=== PATIENT | female | born 1995 | race Caucasian/White ===

== ENCOUNTER 2016-03-28 18:57 | Emergency (ER) | payer MEDICAID, OTHER ==
[~2016-03-28] VITALS: Ht 157.5 cm; Wt 43.1 kg
[2016-03-28 19:24] VITALS: BP 96/60
--- NOTE | 2016-03-28 19:47 | NUR ---
PT TAKEN TO BED 3
--- NOTE | 2016-03-28 19:47 | NUR ---
Dr. Rojo evaluating patient at bedside.
[2016-03-28] MEDS ORDERED: ASPIRIN 81 MG TAB.CHEW PO ONE (19:55)
--- NOTE | 2016-03-28 19:55 | NUR ---
20Y F BIB FRIEND C/O CHEST PAIN X 3 DAYS, DENIES PAIN RADIATES TO ANY EXTREMITIES. NON DIAPHORETIC, NO SOB, NON CLAMMY. PT STATES CHEST FEELS TIGHT MAY BE RELATED TO STRESS
[2016-03-28 21:50] VITALS: BP 112/72
--- NOTE | 2016-03-28 21:50 | NUR ---
Patient discharged with v/s stable. Written and verbal after care instructions given and explained. Patient alert, oriented and verbalized understanding of instructions. Ambulatory with steady gait. All questions addressed prior to discharge. ID band removed. Patient advised to follow up with PMD. Rx of ATIVAN 0.5MG PO given. Patient educated on indication of medication including possible reaction and side effects. Opportunity to ask questions provided and answered.
== END 2016-03-28 21:50 | disposition home or self-care (01) ==
LOC: MED 19:09
DX: F41.9 Anxiety disorder, unspecified (principal); R07.89 Other chest pain
CPT/HCPCS: 36415; 71010; 80053; 81002; 81025; 82553; 83880; 84484; 85025; 85379; 85610; 85730; 93005; 99285; Q0092

== ENCOUNTER 2016-08-08 11:34 | Emergency (ER) | payer OTHER ==
[~2016-08-08] VITALS: Ht 157.5 cm; Wt 43.5 kg
[2016-08-08 12:18] VITALS: BP 84/57
--- NOTE | 2016-08-08 12:30 | NUR ---
PATIENT PRESENTS TO ED WITH C/O RIGHT 2ND THROUGH 5TH FINGER PAIN . PT STATES THE PAIN STARTED 1 WEEK AGO AND HAS PERSISTED DESPITE TAKING OTC TYLENOL. PT DENIES ANY RECENT INJURY OR TRAUMA. PT ABLE TO MOVE ALL DIGITS WITHOUT DIFFICULTY . DENIES N/V/D; SKIN IS PINK/WARM/DRY; AAOX4 WITH EVEN AND STEADY GAIT; LUNGS CLEAR BL; HR EVEN AND REGULAR; PT DENIES ANY FEVER, CP, SOB, OR COUGH AT THIS TIME; PATIENT STATES PAIN OF 10/10 AT THIS TIME; VSS; PATIENT POSITIONED FOR COMFORT; HOB ELEVATED; BEDRAILS UP X2; BED DOWN. ER MD MADE AWARE OF PT STATUS.
--- NOTE | 2016-08-08 12:36 | NUR ---
Maria Ines ROSALES PTAnthony
[2016-08-08] MEDS ORDERED: KETOROLAC 30 MG/ML VIAL IM ONE (12:45)
--- NOTE | 2016-08-08 13:01 | NUR ---
MEDICATION ADMINISTERED ORDERED.
[2016-08-08 13:18] VITALS: BP 84/57
== END 2016-08-08 13:19 | disposition home or self-care (01) ==
LOC: MED 11:34
DX: M79.644 Pain in right finger(s) (principal)
CPT/HCPCS: 96372; 99283; J1885

== ENCOUNTER 2017-03-27 19:08 | Emergency (ER) | payer OTHER ==
[~2017-03-27] VITALS: Ht 160 cm; Wt 43.5 kg
[2017-03-27 19:47] VITALS: BP 133/55
--- NOTE | 2017-03-27 20:05 | NUR ---
TO ER CHAIR A
--- NOTE | 2017-03-27 20:06 | NUR ---
Pt presents to ED with anxiety, cough, nausea without vomitus, pain to left bicept x3 days. Pt denies injury. Alert and oriented x4. VSS. ER MD aware. Continue to monitor.
[2017-03-27 20:21] VITALS: BP 133/55
--- NOTE | 2017-03-27 20:21 | NUR ---
Patient discharged with v/s stable. Pt denies pain, sob, nausea. Written and verbal after care instructions given and explained. Patient verbalized understanding. Ambulatory with steady gait. All questions addressed prior to discharge. Advised to follow up with PMD.
== END 2017-03-27 20:21 | disposition home or self-care (01) ==
LOC: MED 19:08
DX: F41.9 Anxiety disorder, unspecified (principal); R06.4 Hyperventilation
CPT/HCPCS: 99284

== ENCOUNTER 2017-07-10 09:24 | Emergency (ER) | payer OTHER ==
[~2017-07-10] VITALS: Ht 154.9 cm; Wt 44.5 kg
[2017-07-10 09:28] VITALS: BP 98/70
--- NOTE | 2017-07-10 09:30 | NUR ---
gave report to AUDREY Nichole.
--- NOTE | 2017-07-10 09:31 | NUR ---
Pt. ambulated to BED 7.
--- NOTE | 2017-07-10 09:35 | NUR ---
DR. PINTO AT BEDSIDE EVALUATING PT.
--- NOTE | 2017-07-10 09:36 | NUR ---
PATIENT PRESENTS TO ED WITH THE CHIEF C/O OF NECK PAIN . PT STATES NECK PAIN STATES PAIN STARTED SINCE YESTERDAY. PALPABLE LUMP NOTED ON RIGHT SIDE OF NECK, TENDERNESS. . DENIES N/V/D. dENIES FALL, INJURY. SKIN IS PINK/WARM/DRY; AAOX4 WITH EVEN AND STEADY GAIT. HR EVEN AND REGULAR. PT DENIES ANY FEVER, CP, SOB, OR COUGH AT THIS TIME. PATIENT STATES PAIN OF 7/10 AT THIS TIME. VSS WNL. PATIENT POSITIONED FOR COMFORT; HOB ELEVATED; BEDRAILS UP X2; BED DOWN. ER MD MADE AWARE OF PT STATUS.
--- NOTE | 2017-07-10 09:53 | NUR ---
US HIRED HAND AT BEDSIDE FOR US SOFT TISSUE OF HEAD.
[2017-07-10] MEDS ORDERED: IBUPROFEN 800 MG TAB PO ONE (10:00)
[2017-07-10 10:08] LABS: BASOPHILS % (AUTO) 0.6 % (0.0-2.0); EOSINOPHILS % (AUTO) 0.3 % (0.0-4.0); HEMATOCRIT 35.1 % (36-48); HEMOGLOBIN 11.9 g/dL (12.0-16.0); LYMPHOCYTES # (AUTO) 4.1 K/uL (2.5-16.5); LYMPHOCYTES % (AUTO) 54.9 % (20.5-51.1); MEAN CORPUSCULAR HEMOGLOBIN 31 pg (27-31); MEAN CORPUSCULAR HGB CONC 34 g/dL (33-37); MEAN CORPUSCULAR VOLUME 91.2 fL (80-94); MONOCYTES # (AUTO) 0.7 K/uL (0.8-1.0); MONOCYTES % (AUTO) 9.2 % (1.7-9.3); NEUTROPHILS # (AUTO) 2.6 K/uL (1.8-7.7); PLATELET COUNT (AUTO) 209 K/uL (140-450); RED BLOOD CELL COUNT(AUTO) 3.85 MIL/uL (4.20-5.40); RED CELL DISTRIBUTION WIDTH 13.3 % (11.6-13.7); WHITE BLOOD COUNT (AUTO) 7.4 K/uL (4.8-10.8)
[2017-07-10 10:18] LABS: CARBON DIOXIDE 27.8 mmol/L (21-32); CREATININE 0.6 mg/dL (0.6-1.3); POTASSIUM 3.8 mmol/L (3.5-5.1)
--- NOTE | 2017-07-10 10:54 | NUR ---
BOYFRIEND AT BEDSIDE.
[2017-07-10] MEDS ORDERED: NACL 0.9% 1,000 ML IV ONE (11:30)
--- NOTE | 2017-07-10 11:31 | NUR ---
DR. PINTO AT BEDSIDE.
--- NOTE | 2017-07-10 12:37 | NUR ---
PT RESTING IN BED. NO ACUTE DISTRESS NOTED. NO CHANGE IN LOC. WILL CONTINUE TO MONITOR.
[2017-07-10 14:04] VITALS: BP 105/62
--- NOTE | 2017-07-10 14:05 | NUR ---
Patient discharged with v/s stable. Written and verbal after care instructions given and explained. Patient alert, oriented and verbalized understanding of instructions. Ambulatory with steady gait. All questions addressed prior to discharge. ID band removed. Patient advised to follow up with PMD. Rx of PREDNISONE AND AUGMENTIN given. Patient educated on indication of medication including possible reaction and side effects. Opportunity to ask questions provided and answered.
== END 2017-07-10 14:05 | disposition home or self-care (01) ==
LOC: MED 09:24
DX: R59.0 Localized enlarged lymph nodes (principal)
CPT/HCPCS: 36415; 70491; 76536; 80048; 81002; 81025; 85025; 99285; Q0092; Q9967

== ENCOUNTER 2017-07-14 20:39 | Emergency (ER) | payer OTHER ==
[~2017-07-14] VITALS: Ht 157.5 cm; Wt 44.5 kg
[2017-07-14 20:48] VITALS: BP 112/78
--- NOTE | 2017-07-14 21:00 | NUR ---
TO LOBBY A/W BED, AMB, VSS, EKG DONE , ERMD NOTED
--- NOTE | 2017-07-14 21:30 | NUR ---
PT TAKEN TO BED 1
--- NOTE | 2017-07-14 21:30 | NUR ---
21/F CAME IN W C/O 05/17 SUBSTERNAL CHEST PAIN, NONRADIATING, NONPROVOKED SINCE THIS MORNING. PT STATES " I TOOK THIS ANTIBIOTIC AND I STARTED HAVING CHEST PAIN WHEN I WOKE UP". HEART SOUNDS NORMAL. DENIES SOB, N/V/D, FEVER/CHILLS. PT IS NONDIAPHORETIC. DENIES OTHER PMH/RX
--- NOTE | 2017-07-14 22:37 | NUR ---
XRAY AT BEDSIDE
--- NOTE | 2017-07-14 23:04 | NUR ---
DPatient discharged with v/s stable. Written and verbal after care instructions given and explained. Patient verbalized understanding. Ambulatory with steady gait. All questions addressed prior to discharge. Advised to follow up with PMD.
[2017-07-14 23:08] VITALS: BP 128/71
== END 2017-07-14 23:04 | disposition home or self-care (01) ==
LOC: MED 20:39
DX: R06.00 Dyspnea, unspecified (principal); R59.1 Generalized enlarged lymph nodes
CPT/HCPCS: 71045; 93005; 99284

== ENCOUNTER 2018-03-25 15:51 | Emergency (ER) | payer OTHER ==
[~2018-03-25] VITALS: Ht 160 cm; Wt 44.1 kg
[2018-03-25 16:03] VITALS: BP 117/75
--- NOTE | 2018-03-25 16:33 | NUR ---
PT AMBULATES TO XRAY
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
--- NOTE | 2018-03-25 17:39 | NUR ---
Patient discharged with v/s stable. Written and verbal after care instructions given and explained. Patient alert, oriented and verbalized understanding of instructions. Ambulatory with steady gait. All questions addressed prior to discharge. ID band removed. Patient advised to follow up with PMD. Rx of MOTRIN AND KEFLEX given. Patient educated on indication of medication including possible reaction and side effects. Opportunity to ask questions provided and answered.
[2018-03-25 17:40] VITALS: BP 117/75
== END 2018-03-25 17:39 | disposition home or self-care (01) ==
LOC: MED 15:51
DX: S67.191A Crushing injury of left index finger, initial encounter (principal); W23.0XXA Caught, crushed, jammed, or pinched between moving objects, initial encounter; Y93.89 Activity, other specified; Y92.89 Other specified places as the place of occurrence of the external cause; Y99.8 Other external cause status
CPT/HCPCS: 73130; 99283

== ENCOUNTER 2018-04-11 09:48 | Emergency (ER) | payer OTHER ==
[~2018-04-11] VITALS: Ht 160 cm; Wt 45.4 kg
[2018-04-11 09:50] VITALS: BP 127/76
--- NOTE | 2018-04-11 09:50 | NUR ---
PATIENT AMBULATED TO BED 3 AT THIS TIME.
--- NOTE | 2018-04-11 10:04 | NUR ---
Assumed patient care, nursing assessment completed. Seen and evaluated by BONY DAMIAN completed.
--- NOTE | 2018-04-11 10:10 | NUR ---
Hematoma care by MD with no complications.
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
[2018-04-11 10:27] VITALS: BP 96/70
== END 2018-04-11 10:25 | disposition home or self-care (01) ==
LOC: MED 09:48
DX: S60.122A Contusion of left index finger with damage to nail, initial encounter (principal); X58.XXXA Exposure to other specified factors, initial encounter; Y93.89 Activity, other specified; Y92.89 Other specified places as the place of occurrence of the external cause; Y99.8 Other external cause status
CPT/HCPCS: 11740; 99283

== ENCOUNTER 2018-09-27 20:57 | Emergency (ER) | payer OTHER ==
[~2018-09-27] VITALS: Ht 160 cm; Wt 46.3 kg
[2018-09-27 21:04] VITALS: BP 114/69
--- NOTE | 2018-09-27 21:09 | NUR ---
PT AMBULATED TO LOBBY WITH VSS
--- NOTE | 2018-09-27 21:39 | NUR ---
PT AMBULATED TO ER BED 04
--- NOTE | 2018-09-27 21:53 | NUR ---
22 Y/O FEMALE S/P FALL AROUND 5PM. PT WAS CLEANING THE POOL WHEN SHE SLIPPED AND FELL. R LEG CONTINOUS PAIN, 11/16. NO LOC AT TIME OF FALL. PT. STATES,"IT HURTS WHEN I TWIST MY LEG INWARD". VSS. SIDE RAIL X1. ERMD TO SEE PT. LEDY PMH:DENIES
--- NOTE | 2018-09-27 21:53 | NUR ---
PT. AMBULATED TO THE BATHROOM.
--- NOTE | 2018-09-27 22:18 | NUR ---
PT. TAKEN TO X-RAy
[2018-09-27 23:09] VITALS: BP 114/69
--- NOTE | 2018-09-27 23:09 | NUR ---
ANNA WRAP APPLIED TO RT KNEE. CMS INTACT, PULSES PRESENT AND EQUAL PRIOR TO AND POST APPLICATION OF WRAP. PT TOELRATED PROCEDURE WELL.
== END 2018-09-27 23:09 | disposition home or self-care (01) ==
LOC: MED 20:57
DX: S83.91XA Sprain of unspecified site of right knee, initial encounter (principal); X58.XXXA Exposure to other specified factors, initial encounter; Y93.9 Activity, unspecified; Y92.89 Other specified places as the place of occurrence of the external cause; Y99.9 Unspecified external cause status
CPT/HCPCS: 73502; 73562; 73590; 81002; 81025; 99283

== ENCOUNTER 2018-12-06 09:09 | Emergency (ER) | payer OTHER ==
[~2018-12-06] VITALS: Ht 157.5 cm; Wt 44.6 kg
[2018-12-06 09:15] VITALS: BP 94/67
[2018-12-06] MEDS ORDERED: NACL 0.9% 1,000 ML IV ONE (09:30)
[2018-12-06 10:06] LABS: BASOPHILS % (AUTO) 0.3 % (0.0-2.0); EOSINOPHILS % (AUTO) 0.1 % (0.0-4.0); HEMATOCRIT 39.6 % (36-48); HEMOGLOBIN 13.3 g/dL (12.0-16.0); LYMPHOCYTES # (AUTO) 0.3 K/uL (2.5-16.5); LYMPHOCYTES % (AUTO) 4.6 % (20.5-51.1); MEAN CORPUSCULAR HEMOGLOBIN 32 pg (27-31); MEAN CORPUSCULAR HGB CONC 34 g/dL (33-37); MEAN CORPUSCULAR VOLUME 94.3 fL (80-94); MONOCYTES # (AUTO) 0.6 K/uL (0.8-1.0); MONOCYTES % (AUTO) 7.4 % (1.7-9.3); NEUTROPHILS # (AUTO) 6.6 K/uL (1.8-7.7); NEUTROPHILS % (AUTO) 87.6 % (42.2-75.2); PLATELET COUNT (AUTO) 228 K/uL (140-450); WHITE BLOOD COUNT (AUTO) 7.6 K/uL (4.8-10.8)
[2018-12-06 10:07] LABS: APPEARANCE,URINE CLEAR (CLEAR); BILIRUBIN,URINE 2+ (NEGATIVE); BLOOD, URINE 2+ (NEGATIVE); COLOR,URINE YELLOW (YELLOW); LEUKOCYTE ESTERASE ,URINE NEGATIVE (NEGATIVE); NITRITE, URINE NEGATIVE (NEGATIVE); UGLUCOSE NEGATIVE (NEGATIVE)
[2018-12-06] MEDS ORDERED: diphenhydrAMINE 50 MG/ML VIAL IVP ONE (10:10)
[2018-12-06] MEDS ORDERED: DICYCLOMINE HCL LIQUID 20 MG, ALUMINUM HYD/MAG/SIMETHICONE 30 ML, LIDOCAINE VISCOUS 2% ... PO ONE ×3 (10:10)
[2018-12-06] MEDS ORDERED: KETOROLAC 15 MG/ML VIAL IVP ONE (10:10)
[2018-12-06] MEDS ORDERED: METOCLOPRAMIDE 10 MG/2 ML INJ VIAL IVP ONE (10:10)
[2018-12-06 10:20] LABS: ALBUMIN 4.5 g/dL (3.4-5.0); ANION GAP 16.8 (8-16); CARBON DIOXIDE 22.2 mmol/L (21-32); CREATININE 0.7 mg/dL (0.6-1.3); TOTAL BILIRUBIN 0.9 mg/dL (0.0-1.0)
[2018-12-06 10:46] LABS: RBC,URINE 11-20 (MOD) /HPF (0-5)
[2018-12-06 10:47] LABS: WBC,URINE 0-5 /HPF (0-5)
[2018-12-06 12:12] VITALS: BP 94/67
== END 2018-12-06 12:13 | disposition home or self-care (01) ==
LOC: MED 09:09
DX: K29.70 Gastritis, unspecified, without bleeding (principal); R11.2 Nausea with vomiting, unspecified
CPT/HCPCS: 36415; 80053; 81001; 81025; 82150; 83690; 84703; 85025; 96361; 96374; 96375; 99283; J1200; J1885; J2765

== ENCOUNTER 2020-08-24 14:18 | Emergency (ER) | payer OTHER ==
[~2020-08-24] VITALS: Ht 160 cm; Wt 47.6 kg
[2020-08-24 14:30] VITALS: BP 107/63
--- NOTE | 2020-08-24 14:31 | NUR ---
PT AMBULATED TO BED 7
--- NOTE | 2020-08-24 14:37 | NUR ---
KADEN PEREYRA AT BEDSIDE FOR EVALUATION.
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
[2020-08-24] MEDS ORDERED: ACETAMINOPHEN 325 MG TAB PO ONE (14:45)
--- NOTE | 2020-08-24 14:56 | NUR ---
PT TAKEN TO CT SCAN VIA W/C.
--- NOTE | 2020-08-24 15:05 | NUR ---
Patient back to [facility] from [place].
--- NOTE | 2020-08-24 15:20 | NUR ---
Patient states positive relief; pain 4/10 at this time. Denies nausea. All needs met.
[2020-08-24] MEDS ORDERED: ACET-10509 PO (15:31)
[2020-08-24 15:46] VITALS: BP 107/63
== END 2020-08-24 15:46 | disposition home or self-care (01) ==
LOC: MED 14:18
DX: S09.90XA Unspecified injury of head, initial encounter (principal); Z79.899 Other long term (current) drug therapy; V43.52XA Car driver injured in collision with other type car in traffic accident, initial encounter; Y93.89 Activity, other specified; Y92.89 Other specified places as the place of occurrence of the external cause; Y99.8 Other external cause status
CPT/HCPCS: 70450; 81025; 99284

== ENCOUNTER 2021-06-29 09:56 | Emergency (ER) | payer OTHER ==
[~2021-06-29] VITALS: Ht 160 cm; Wt 42.6 kg
[~2021-06-29 09:56] MED LIST: ACET-10509 PO
[2021-06-29 10:02] VITALS: BP 122/76
[2021-06-29] MEDS ORDERED: METR-435 PO (11:29)
[2021-06-29] MEDS ORDERED: ONDA-188 SL (11:29)
[2021-06-29] MEDS ORDERED: ACET-10509 PO (11:29)
[2021-06-29 11:53] VITALS: BP 122/76
--- NOTE | 2021-06-29 11:54 | NUR ---
Patient discharged with v/s stable. Written and verbal after care instructions given and explained. Patient alert, oriented and verbalized understanding of instructions. Ambulatory with family to car. All questions addressed prior to discharge. ID band removed. Patient advised to follow up with PMD. Rx of ondansetron, metronidazole, acetaminophen (sent) given. Patient educated on indication of medication including possible reaction and side effects. Opportunity to ask questions provided and answered. work note given
== END 2021-06-29 11:54 | disposition home or self-care (01) ==
LOC: MED 09:56
DX: N39.0 Urinary tract infection, site not specified (principal); N76.0 Acute vaginitis; B96.89 Other specified bacterial agents as the cause of diseases classified elsewhere; Z79.899 Other long term (current) drug therapy
CPT/HCPCS: 81002; 81025; 99283

== ENCOUNTER 2022-01-07 12:47 | Emergency (ER) | payer OTHER ==
[~2022-01-07] VITALS: Ht 160 cm; Wt 45.8 kg
[~2022-01-07 12:47] MED LIST changes: +METR-435 PO; +ONDA-188 SL
[2022-01-07 12:50] VITALS: BP 113/68
[2022-01-07] MEDS ORDERED: ACETAMINOPHEN 325 MG TAB ONE (14:48)
[2022-01-07] MEDS: ACETAMINOPHEN 325 MG TAB PO ONE (15:01)
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
--- NOTE | 2022-01-07 15:30 | NUR ---
Patient discharged with v/s stable. Written and verbal after care instructions given and explained. Patient verbalized understanding. Ambulatory with steady gait. All questions addressed prior to discharge. Advised to follow up with PMD.
== END 2022-01-07 15:40 | disposition home or self-care (01) ==
LOC: MED 12:47
DX: S50.812A Abrasion of left forearm, initial encounter (principal); S20.312A Abrasion of left front wall of thorax, initial encounter; Z79.899 Other long term (current) drug therapy; V49.9XXA Car occupant (driver) (passenger) injured in unspecified traffic accident, initial encounter; Y93.89 Activity, other specified; Y92.488 Other paved roadways as the place of occurrence of the external cause; Y99.8 Other external cause status
CPT/HCPCS: 71045; 73090; 81025; 90471; 90715; 99284

== ENCOUNTER 2023-05-31 11:21 | Emergency (ER) | payer OTHER ==
[~2023-05-31] VITALS: Ht 160 cm; Wt 44.5 kg
[2023-05-31 11:48] VITALS: BP 94/65; PULSE 99; RESP 18; TEMP 98.7; O2SAT 97
[2023-05-31] MEDS ORDERED: CRUSHER, PILL MC ONE (14:34)
[2023-05-31 14:48] LABS: BASOPHILS # (AUTO) 0.1 K/uL (0.00-0.22); BASOPHILS % (AUTO) 1.1 % (0.0-2.0); EOSINOPHILS # (AUTO) 0.1 K/uL (0-0.4); EOSINOPHILS % (AUTO) 1.1 % (0.0-4.0); HEMATOCRIT 39.6 % (36-48); HEMOGLOBIN 13.8 g/dL (12.0-16.0); LYMPHOCYTES # (AUTO) 1.6 K/uL (2.5-16.5); LYMPHOCYTES % (AUTO) 23.9 % (20.5-51.1); MEAN CORPUSCULAR HEMOGLOBIN 32 pg (27-31); MEAN CORPUSCULAR HGB CONC 35 g/dL (33-37); MEAN CORPUSCULAR VOLUME 92.4 fL (80-94); MONOCYTES # (AUTO) 0.6 K/uL (0.8-1.0); MONOCYTES % (AUTO) 9.2 % (1.7-9.3); NEUTROPHILS # (AUTO) 4.3 K/uL (1.8-7.7); NEUTROPHILS % (AUTO) 64.7 % (42.2-75.2); PLATELET COUNT (AUTO) 327 K/uL (140-450); RED BLOOD CELL COUNT(AUTO) 4.29 MIL/uL (4.20-5.40); RED CELL DISTRIBUTION WIDTH 12.3 % (11.6-13.7); WHITE BLOOD COUNT (AUTO) 6.7 K/uL (4.8-10.8)
[2023-05-31 15:07] LABS: ALBUMIN 4.6 g/dL (3.4-5.0); ANION GAP 13.6 (8-16); CALCIUM 9.7 mg/dL (8.5-10.1); CARBON DIOXIDE 27.5 mmol/L (21-32); CREATININE 0.7 mg/dL (0.6-1.3); POTASSIUM 4.1 mmol/L (3.5-5.1); TOTAL BILIRUBIN 0.7 mg/dL (0.0-1.0)
[2023-05-31 15:08] LABS: APPEARANCE,URINE CLEAR (CLEAR); BILIRUBIN,URINE 1+ (NEGATIVE); BLOOD, URINE 2+ (NEGATIVE); COLOR,URINE YELLOW (YELLOW); LEUKOCYTE ESTERASE ,URINE NEGATIVE (NEGATIVE); NITRITE, URINE NEGATIVE (NEGATIVE); PROTEIN,URINE NEGATIVE (NEGATIVE); UGLUCOSE NEGATIVE (NEGATIVE); UROBILINOGEN,URINE 0.2 EU/dL (0.2 - 1)
[2023-05-31 15:16] LABS: BACTERIA,URINE 10-30 (MOD) /HPF (None Seen); CALCIUM OXALATE CRYSTALS,UR 0-10 /HPF (None Seen); MUCUS,URINE 1+ /LPF (None Seen); SQUAMOUS EPITHELIAL CELL,UR 4-10 (MOD) /LPF (0-3 (FEW)); WBC,URINE 0-5 /HPF (0-5)
[2023-05-31 15:17] LABS: ICTOTEST NEGATIVE (NEGATIVE)
[2023-05-31] MEDS ORDERED: POLY17PD72 PO (15:37)
[2023-05-31] MEDS ORDERED: NITR100C1 PO (15:37)
== END 2023-05-31 15:50 | disposition home or self-care (01) ==
LOC: MED 11:21
DX: R10.10 Upper abdominal pain, unspecified (principal); R11.0 Nausea; Z79.899 Other long term (current) drug therapy
CPT/HCPCS: 36415; 80053; 81001; 81025; 83690; 85025; 87086; 99283